=== PATIENT | female | born 1995 | race Caucasian/White ===

== ENCOUNTER 2022-10-27 22:58 | Emergency (ER) | payer OTHER ==
[~2022-10-27] VITALS: Ht 165.1 cm; Wt 77.1 kg
[2022-10-27 23:53] VITALS: BP 136/96; TEMP 98.1; O2SAT 98
== END 2022-10-28 00:49 | disposition home or self-care (01) ==
LOC: ER 23:11
DX: H57.89 Other specified disorders of eye and adnexa (principal); F41.9 Anxiety disorder, unspecified